=== PATIENT | male | born 1955 | race Caucasian/White ===

== ENCOUNTER 2019-07-24 07:46 | Outpatient (CLI) | payer BC, SELFPAY ==
[2019-07-24 08:19] LABS: Hematocrit 44.9 % (42.0-52.0); Hemoglobin 14.7 g/dL (14.0-18.0); Mean Corpuscular HGB Conc 32.7 g/dl (32-36); Mean Corpuscular Hemoglobin 30.1 pg (26-34); Mean Corpuscular Volume 91.8 fl (80-100); Mean Platelet Volume 9.8 fl (7.4-10.4); Platelet Count Result 179 k/mm3 (150-375); Red Blood Count 4.89 M/mm3 (4.6-6.20); White Blood Count 8.3 K/mm3 (4.5-10.0)
[2019-07-24 08:34] LABS: Alanine Aminotransferase 17 U/L (4-50); Albumin Level 4.1 g/dL (3.5-5.1); Alkaline Phosphatase 62 U/L (38-126); Aspartate Amino Transferase 22 U/L (17-59); Bilirubin,Total 0.4 mg/dL (0.2-1.3); Blood Urea Nitrogen 21 mg/dL (9-20); Calcium 9.1 mg/dL (8.4-10.2); Carbon Dioxide 24 mmol/L (22-30); Chloride 103 mmol/L (98-107); Cholesterol 102 mg/dL (0-200); Estimated Glomerular Filt Rate > 60; Glucose 111 mg/dL (75-110); HDL Direct 39 mg/dL; Potassium 3.9 mmol/L (3.4-5.0); Sodium 136 mmol/L (137-145); Triglycerides 149 mg/dL (<150)
[2019-07-24 08:45] LABS: LDL Cholesterol Direct 38 mg/dL
[2019-07-24 09:04] LABS: Prostate Specific Antigen < 0.1 ng/mL (< OR = 4.0)
[2019-07-24 09:59] LABS: Vitamin D 25 Hydroxy 39.1 ng/mL
== END 2019-07-24 07:47 | disposition home or self-care (01) ==
PROVIDERS: PCP Internal Medicine; Visit Provider Internal Medicine
DX: Z00.00 Encounter for general adult medical examination without abnormal findings (principal); I10 Essential (primary) hypertension; E55.9 Vitamin D deficiency, unspecified
CPT/HCPCS: 36415; 80053; 80061; 82306; 83735; 84153; 84443; 85027

== ENCOUNTER 2019-08-22 00:46 | Day surgery (SDC) | payer BC, SELFPAY ==
[2019-08-15 14:47] VITALS: BMI 26.5
[2019-08-22] MEDS: LACTATED RINGERS 1,000 ML 150 ML IV CONT (07:19)
[2019-08-22 07:32] VITALS: BP 144/94; PULSE 58; RESP 16; TEMP 36.2; O2SAT 100
--- NOTE | 2019-08-22 07:41 | PM.HPGS ---
History of Present Illness History of Present Illness Consent: Risks, benefits, and alternatives have been discussed and questions answered. Patient agrees to proceed with procedure. Chief complaint: Neoplasm Screening Narrative: Marcellus Liang is a 63 year old male referred for screening colonoscopy [facility] Family History Family History Father Patient's father is Malignant neoplasm of prostate Mother Patient's mother is Sibling Malignant neoplasm of prostate Social History Social History Smoking status: Never smoker Second hand tobacco smoke exposure: No Alcohol intake: current Meds Home Medications and Allergies Home Medications Medication Instructions Recorded Confirmed Type aspirin 81 mg tablet,delayed 81 mg PO DAILY 05/01/19 08/15/19 History release evolocumab 140 mg/mL subcutaneous 140 mg SUB-Q ONCE 05/01/19 08/15/19 History pen injector gabapentin 300 mg capsule 300 mg PO DAILY 05/01/19 08/15/19 History lisinopril 20 mg tablet 20 mg PO DAILY 05/01/19 08/15/19 History metoprolol succinate 25 mg 25 mg PO DAILY 05/01/19 08/15/19 History tablet,extended release 24 hr zivabqui-oia-zgalp acid 300 1 tablet PO DAILY 05/01/19 08/15/19 History mcg-lycopene 600 mcg-lutein 300 mcg tablet nitroglycerin 0.3 mg sublingual 0.3 mg SUBLINGUAL Q5M PRN 05/01/19 08/15/19 History tablet red yeast rice 600 mg tablet 600 mg PO DAILY 05/01/19 08/15/19 History famotidine 40 mg tablet 40 mg PO DAILY #90 tablet 06/06/19 08/15/19 Rx diazepam 10 mg tablet 10 mg PO BID PRN #60 tablet 08/07/19 08/15/19 Rx naproxen 500 mg tablet 500 mg PO BID PRN #60 tablet 08/14/19 08/15/19 Rx Allergies Allergy/AdvReac Type Severity Reaction Status Date / Time iodine Allergy Severe Verified 08/22/19 07:26 alirocumab Allergy Unknown flu like Verified 08/22/19 07:26 symptoms ibuprofen Allergy Unknown Verified 08/22/19 07:26 Iodinated Contrast Media Allergy Unknown Verified 08/22/19 07:26 Spfeqey-Izw-Agg Reductase Allergy Unknown Verified 08/22/19 07:26 Inhibitor tramadol Allergy Unknown suicidal Verified 08/22/19 07:26 thoughts Vital Signs Vital Signs - 24 hr 08/22/19 07:32 Temperature 36.2 C L Pulse Rate 58 L Respiratory Rate 16 Blood Pressure 144/94 H Pulse Oximetry 100 Exam Resp: Auscultation: clear to auscultation bilaterally Cardio: Rate: regular rate Rhythm: regular rhythm GI: GI Palp: Yes Soft to palpation and No Tenderness to palpation present (GI) Assessment and Plan Assessment and plan (1) Colon cancer screening: Code(s): Z12.11 - Encounter for screening for malignant neoplasm of colon Status: Acute Assessment and Plan: Colonoscopy with possible biopsy or polypectomy or cautery or injection of substances.
--- NOTE | 2019-08-22 08:01 | WPDANESEPPF ---
Anes - Initial Pre Proc Eval Procedure: Operation Date: 08/22/19 08:30 Proposed Procedures p Screening Colonoscopy - Dre Antoine MD Date/Time: 08/22/19 08:01 Surgeon: Dre Antoine MD Pre Op Diagnosis: Neoplasm Screening Patient Data Age: 63 Gender: M Height: 5 ft 10 in Weight: 83.3 kg Last Vital Signs Temp 97.1 F L 08/22/19 07:32 Pulse 58 L 08/22/19 07:32 Resp 16 08/22/19 07:32 BP 144/94 H 08/22/19 07:32 Pulse Ox 100 08/22/19 07:32 Allergies Allergy/AdvReac Type Severity Reaction Status Date / Time iodine Allergy Severe Verified 08/22/19 07:26 alirocumab Allergy Unknown flu like Verified 08/22/19 07:26 symptoms ibuprofen Allergy Unknown Verified 08/22/19 07:26 Iodinated Contrast Media Allergy Unknown Verified 08/22/19 07:26 Vmpmwfr-Hdc-Ezk Reductase Allergy Unknown Verified 08/22/19 07:26 Inhibitor tramadol Allergy Unknown suicidal Verified 08/22/19 07:26 thoughts Home Medications Medication Instructions Recorded Confirmed Type aspirin 81 mg tablet,delayed 81 mg PO DAILY 05/01/19 08/15/19 History release evolocumab 140 mg/mL subcutaneous 140 mg SUB-Q ONCE 05/01/19 08/15/19 History pen injector gabapentin 300 mg capsule 300 mg PO DAILY 05/01/19 08/15/19 History lisinopril 20 mg tablet 20 mg PO DAILY 05/01/19 08/15/19 History metoprolol succinate 25 mg 25 mg PO DAILY 05/01/19 08/15/19 History tablet,extended release 24 hr prgymwoa-bim-vxusg acid 300 1 tablet PO DAILY 05/01/19 08/15/19 History mcg-lycopene 600 mcg-lutein 300 mcg tablet nitroglycerin 0.3 mg sublingual 0.3 mg SUBLINGUAL Q5M PRN 05/01/19 08/15/19 History tablet red yeast rice 600 mg tablet 600 mg PO DAILY 05/01/19 08/15/19 History famotidine 40 mg tablet 40 mg PO DAILY #90 tablet 06/06/19 08/15/19 Rx diazepam 10 mg tablet 10 mg PO BID PRN #60 tablet 08/07/19 08/15/19 Rx naproxen 500 mg tablet 500 mg PO BID PRN #60 tablet 08/14/19 08/15/19 Rx Patient hx anesthesia problems: none Family hx anesthesia problems: none PMFSH Past Medical History Medical History (Updated 08/22/19 @ 07:51 by Kishore Almodovar MD) H/O prostate cancer Hyperlipidemia Hypertension Myocardial infarct, old Surgical History Surgical History (Updated 08/22/19 @ 08:00 by Kishore Almodovar MD) S/P CABG x 4 Family History Family History Father Patient's father is Malignant neoplasm of prostate Mother Patient's mother is Sibling Malignant neoplasm of prostate Social History Social History Smoking status: Never smoker Second hand tobacco smoke exposure: No Alcohol intake: current Anes - Eval Final PreProcedure Day of Procedure 08/22/19 08:01 Patient weight: normal Heart: regular rate and rhythm Lungs: clear to auscultation Airway: Mallampati scale class III Neurological: alert and oriented Last oral intake: >/= 8 hours ASA classification: III Emergent: no Anesthetic plan: proceed Anesthesia type and monitoring: general GIVS and standard monitoring Informed Consent: The patient's anesthetic plan and its attendant risks and benefits were discussed with the patient/family/POA. Questions were solicited and answers provided to the satisfaction of the patient/family/POA.
[2019-08-22] MEDS: SIMETHICONE ORAL SUSPENSION 20 MG/0.3 ML 30 ML BOTTLE 0.6 ML IRRIGATION (08:38)
[2019-08-22 08:51] VITALS: BP 140/77; PULSE 64; RESP 18; O2SAT 98
[2019-08-22 09:01] VITALS: BP 113/70; PULSE 62; RESP 18; O2SAT 99
[2019-08-22 09:11] VITALS: BP 153/93; PULSE 55; RESP 20; O2SAT 100
== END 2019-08-22 09:27 | disposition home or self-care (01) ==
PROVIDERS: PCP Internal Medicine; Visit Provider Internal Medicine Gastroenterology
PROC: 0DJD8ZZ Inspection of Lower Intestinal Tract, Via Natural or Artificial Opening Endoscopic (ICD-10-PCS; CPT 45378; principal; 2019-08-22 08:30)
DX: Z12.11 Encounter for screening for malignant neoplasm of colon (principal); K63.5 Polyp of colon; K57.30 Diverticulosis of large intestine without perforation or abscess without bleeding; I10 Essential (primary) hypertension; E78.5 Hyperlipidemia, unspecified; I25.2 Old myocardial infarction; Z85.46 Personal history of malignant neoplasm of prostate; Z79.82 Long term (current) use of aspirin; Z95.1 Presence of aortocoronary bypass graft
CPT/HCPCS: 45380; 88305; J2704; J7120

== ENCOUNTER 2019-10-25 09:24 | Outpatient (CLI) | payer BC, SELFPAY ==
--- NOTE | ~2019-10-25 | XR_ITS ---
XR knee RT 2V 10/25/2019 09:49 Indication: Right knee pain. Previous knee surgery. Procedure: 2 views right knee Comparison: No prior studies for comparison. Findings: No fracture, subluxation or dislocation. There are surgical clips medial to the right knee. No significant joint effusion. No joint space narrowing. Impression: 1: No significant bone or joint abnormality. Reviewed, dictated and finalized at location A. Impression: 1: No significant bone or joint abnormality.
== END 2019-10-25 09:25 | disposition home or self-care (01) ==
PROVIDERS: PCP Internal Medicine; Visit Provider Internal Medicine
DX: M25.561 Pain in right knee (principal)
CPT/HCPCS: 73560

== ENCOUNTER 2020-02-18 11:20 | Emergency (ER) | payer BC, SELFPAY ==
[2020-02-18 11:23] VITALS: BP 143/86; PULSE 73; RESP 16; TEMP 36.7; O2SAT 100
[2020-02-18] MEDS: hydrOXYzine HCL 25 MG TABLET 50 MG PO (12:07)
[2020-02-18] MEDS: FAMOTIDINE 20 MG TABLET PO (12:07)
[2020-02-18] MEDS: predniSONE 20 MG TABLET 60 MG PO (12:08)
--- NOTE | 2020-02-18 12:40 | ED.ALLEREA ---
HPI - Allergic Reaction General Chief complaint: Allergic Reaction <DIMITRY Donaldson Last Filed: 02/18/20 12:46> Stated complaint: stung by wasps 2 days ago <DIMITRY Donaldson Last Filed: 02/18/20 12:46> Time Seen by Provider: 02/18/20 11:47 <DIMITRY Donaldson Last Filed: 02/18/20 12:46> Source: patient and family <DIMITRY Donaldson Last Filed: 02/18/20 12:46> Mode of arrival: ambulatory <DIMITRY Donaldson Last Filed: 02/18/20 12:46> Limitations: no limitations <DIMITRY Donaldsno Last Filed: 02/18/20 12:46> History of Present Illness HPI narrative: Patient is a 64-year-old male who presents to emergency department for evaluation of having been stung by several wasps on the top of the head 2 days ago developed swelling and irritation after which patient took Benadryl yesterday with improvement but symptoms reoccurred later patient presents with some discomfort on top of the crown of the head where he has sharp stabbing pain that is intermittent patient denies any current dyspnea tongue swelling or throat tightening. . Patient is unsure as to tetanus status. Patient presents with family in no distress <DIMITRY Donaldson Last Filed: 02/18/20 12:46> Related Data Home medications: Home Medications Medication Instructions Recorded Confirmed aspirin 81 mg tablet,delayed 81 mg PO DAILY 05/01/19 12/29/19 release evolocumab 140 mg/mL subcutaneous 140 mg SUB-Q ONCE 05/01/19 12/29/19 pen injector povoiwrd-eak-drmhj acid 300 1 tablet PO DAILY 05/01/19 12/29/19 mcg-lycopene 600 mcg-lutein 300 mcg tablet nitroglycerin 0.3 mg sublingual 0.3 mg SUBLINGUAL Q5M PRN 05/01/19 12/29/19 tablet cholecalciferol (vitamin D3) 25 25 mcg PO DAILY 12/25/19 12/29/19 mcg (1,000 unit) capsule mecobalamin (vitamin B12) 5,000 mcg PO 12/25/19 12/29/19 mcg disintegrating tablet <DIMITRY Donaldson Filed: 02/18/20 12:46> Allergies/adverse reactions: Allergies Allergy/AdvReac Type Severity Reaction Status Date / Time Iodinated Contrast Media Allergy Severe Anaphylaxis Verified 02/18/20 11:30 ibuprofen Allergy Mild Ulcers Verified 02/18/20 11:30 alirocumab Allergy Unknown flu like Verified 02/18/20 11:30 symptoms Ohhyuen-Dph-Uqq Reductase AdvReac Intermediate leg pain Verified 02/18/20 11:30 Inhibitor <Ray Correia PA-C - Last Filed: 02/18/20 12:46> Review of Systems Review of Systems: All systems reviewed & are unremarkable except as noted in HPI and below <Ray Correia PA-C - Last Filed: 02/18/20 12:46> PMFSH Past Medical History Medical History: Medical History H/O prostate cancer Hyperlipidemia Hypertension Myocardial infarct, old <Ray Correia PA-C - Last Filed: 02/18/20 12:46> Surgical History Surgical History: Surgical History S/P CABG x 4 <Ray Correia PA-C - Last Filed: 02/18/20 12:46> Social History Social History: Social History Smoking status: Never smoker Second hand tobacco smoke exposure: No Alcohol intake: current Substance use: never Gender identity (if verbalized by the patient): Male <Ray Correia PA-C - Last Filed: 02/18/20 12:46> Exam Narrative: Exam Narrative: GENERAL: Well-appearing, well-nourished, and in no acute distress. HEAD: Normocephalic, atraumatic. Patient with facial edema around the eyes and down into the cheeks EYES: PERRLA and EOMI. ENT: Nares clear, no rhinorrhea or epistaxis. Mucous membranes moist. Oropharynx without tonsillar hypertrophy exudate or other lesions. No angioedema in the oropharynx NECK: Supple. No adenopathy or masses. No stridor CHEST: Clear to auscultation. No respiratory distress. No wheezes rales or rhonchi HEART:
[2020-02-18] MEDS: TETANUS,DIPHTHERIA,AC PERTUSSIS ADULT (0.5 ML) BOOSTRIX IM (12:58)
== END 2020-02-18 13:03 | disposition home or self-care (01) ==
PROVIDERS: Emergency Provider Emergency Medicine; PCP Internal Medicine
DX: T63.461A Toxic effect of venom of wasps, accidental (unintentional), initial encounter (principal); Z79.82 Long term (current) use of aspirin; Z85.46 Personal history of malignant neoplasm of prostate; E78.5 Hyperlipidemia, unspecified; I10 Essential (primary) hypertension; I25.2 Old myocardial infarction; I25.10 Atherosclerotic heart disease of native coronary artery without angina pectoris; Z95.1 Presence of aortocoronary bypass graft; Z23 Encounter for immunization
CPT/HCPCS: 90471; 90715; 99283; A9270; J7512

== ENCOUNTER 2020-06-16 10:51 | Outpatient (CLI) | payer BC, SELFPAY ==
--- NOTE | ~2020-06-16 | XR_ITS ---
EXAMINATION: XR ribs LT 2V w CXR 2V DATE: 06/16/2020 11:13 INDICATION: Lateral lower left rib pain post fall 3 days prior TECHNIQUE: A frontal inspiratory view of the chest and 3 views of the left ribs were obtained. COMPARISON: Chest radiograph dated 05/23/2019 FINDINGS: Recent appearing nondisplaced fracture at the anterolateral left ninth rib. Old healed fracture of th e posterolateral left second rib. No other rib fractures identified. Lungs are clear with no focal ai rspace opacities, pulmonary edema, pleural effusion or pneumothorax. Cardiomediastinal silhouette is normal. Median sternotomy wires and mediastinal surgical clips are seen, likely from prior coronary a rtery bypass grafting. IMPRESSION: 1. Recent-appearing nondisplaced anterolateral left ninth rib fracture. 2. No pneumothorax, pleural effusion or other acute cardiopulmonary disease. Reviewed, dictated and finalized at location A. 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
== END 2020-06-16 10:52 | disposition home or self-care (01) ==
PROVIDERS: PCP Internal Medicine; Visit Provider Physician Assistant
DX: S22.32XA Fracture of one rib, left side, initial encounter for closed fracture (principal); X58.XXXA Exposure to other specified factors, initial encounter
CPT/HCPCS: 71046; 71100

== ENCOUNTER 2020-06-25 08:13 | Outpatient (CLI) | payer BC, SELFPAY ==
[2020-06-25 08:58] LABS: Basophils Percent Auto 0.6 % (0.2-1.2); Eosinophils Absolute Auto 0.2 K/mm3 (0-0.3); Eosinophils Percent Auto 3.2 % (0-4.4); Hematocrit 45.9 % (42.0-52.0); Hemoglobin 15.2 g/dL (14.0-18.0); Immature Granulocyte Absolute 0.06 K/mm3 (0.00-0.031); Immature Granulocyte Percent A 0.9 % (0-0.5); Lymphocytes Percent Auto 17.4 % (18.3-44.2); Mean Corpuscular HGB Conc 33.1 g/dl (32-36); Mean Corpuscular Hemoglobin 30.3 pg (26-34); Mean Corpuscular Volume 91.4 fl (80-100); Mean Platelet Volume 9.5 fl (7.4-10.4); Monocytes Absolute Auto 0.5 K/mm3 (0.1-0.6); Monocytes Percent Auto 8.4 % (2.6-8.5); Neutrophils Absolute Auto 4.4 K/mm3 (1.3-6.7); Neutrophils Percent Auto 69.5 % (45.5-73.1); Platelet Count Result 181 k/mm3 (150-375); Red Blood Count 5.02 M/mm3 (4.6-6.20); Red Cell Distribution Width 13.7 % (11.5-14.5); White Blood Count 6.3 K/mm3 (4.5-10.0)
[2020-06-25 09:09] LABS: Alanine Aminotransferase 18 U/L (4-50); Alkaline Phosphatase 76 U/L (38-126); Anion Gap 6 mmol/L (8-16); Aspartate Amino Transferase 25 U/L (17-59); Bilirubin,Total 0.4 mg/dL (0.2-1.3); Blood Urea Nitrogen 24 mg/dL (9-20); Carbon Dioxide 26 mmol/L (22-30); Chloride 106 mmol/L (98-107); Cholesterol 117 mg/dL (0-200); Estimated Glomerular Filt Rate > 60; Glucose 115 mg/dL (75-110); HDL Direct 38 mg/dL; Potassium 4.1 mmol/L (3.4-5.0); Sodium 138 mmol/L (137-145); Triglycerides 234 mg/dL (<150)
[2020-06-25 09:23] LABS: LDL Cholesterol Direct 40 mg/dL
[2020-06-25 09:41] LABS: Prostate Specific Antigen < 0.1 ng/mL (< OR = 4.0)
[2020-06-25 10:16] LABS: Folic Acid > 20.0 ng/mL (2.76->20)
== END 2020-06-25 08:14 | disposition home or self-care (01) ==
PROVIDERS: PCP Internal Medicine; Referring Provider Internal Medicine Cardiovascular Disease; Visit Provider Internal Medicine
DX: R53.83 Other fatigue (principal); E78.5 Hyperlipidemia, unspecified; I10 Essential (primary) hypertension; Z12.5 Encounter for screening for malignant neoplasm of prostate
CPT/HCPCS: 36415; 80053; 80061; 82607; 82746; 84153; 84443; 85025; G0103

== ENCOUNTER 2021-01-20 08:47 | Outpatient (CLI) | payer MEDICARE, SELFPAY ==
[2021-01-20 09:19] LABS: Cholesterol 96 mg/dL (0-200); HDL Direct 39 mg/dL; Triglycerides 227 mg/dL (<150)
[2021-01-20 09:34] LABS: LDL Cholesterol Direct < 30 mg/dL
== END 2021-01-20 08:48 | disposition home or self-care (01) ==
PROVIDERS: PCP Internal Medicine; Visit Provider Internal Medicine Cardiovascular Disease
DX: I25.10 Atherosclerotic heart disease of native coronary artery without angina pectoris (principal); E78.5 Hyperlipidemia, unspecified
CPT/HCPCS: 36415; 80061

== ENCOUNTER 2021-04-15 12:01 | Outpatient (CLI) | payer MEDICARE, SELFPAY ==
--- NOTE | ~2021-04-15 | XR_ITS ---
EXAMINATION: XR clavicle LT INDICATION: Left clavicle pain TECHNIQUE: Two views of the left clavicle are obtained. COMPARISON: 06/16/2020 FINDINGS: Bone alignment is normal. There is no fracture. Mild osteoarthritis is noted at the acromio clavicular joint. Median sternotomy wires and surgical clips in the right lung apex are noted. IMPRESSION: 1. No acute osseous abnormality. Reviewed, dictated and finalized at location A.
== END 2021-04-15 12:02 | disposition home or self-care (01) ==
LOC: ANHIMG 12:14
PROVIDERS: PCP Internal Medicine; Visit Provider Physician Assistant
DX: R07.89 Other chest pain (principal); W19.XXXA Unspecified fall, initial encounter
CPT/HCPCS: 73000

== ENCOUNTER 2021-08-03 08:55 | Outpatient (CLI) | payer MEDICARE, SELFPAY ==
[2021-08-03 09:27] LABS: Basophils Absolute Auto 0.1 K/mm3 (0.0-0.1); Basophils Percent Auto 0.8 % (0.2-1.2); Eosinophils Absolute Auto 0.2 K/mm3 (0-0.3); Eosinophils Percent Auto 3.1 % (0-4.4); Hematocrit 46.6 % (42.0-52.0); Hemoglobin 15.7 g/dL (14.0-18.0); Immature Granulocyte Absolute 0.05 K/mm3 (0.00-0.031); Immature Granulocyte Percent A 0.7 % (0-0.5); Lymphocytes Absolute Auto 1.37 K/mm3 (0.9-3.2); Lymphocytes Percent Auto 18.5 % (18.3-44.2); Mean Corpuscular HGB Conc 33.7 g/dl (32-36); Mean Corpuscular Hemoglobin 30.3 pg (26-34); Mean Platelet Volume 9.6 fl (7.4-10.4); Monocytes Absolute Auto 0.6 K/mm3 (0.1-0.6); Monocytes Percent Auto 8.5 % (2.6-8.5); Neutrophils Absolute Auto 5.1 K/mm3 (1.3-6.7); Neutrophils Percent Auto 68.4 % (45.5-73.1); Platelet Count Result 198 k/mm3 (150-375); Red Blood Count 5.18 M/mm3 (4.6-6.20); Red Cell Distribution Width 12.5 % (11.5-14.5); White Blood Count 7.4 K/mm3 (4.5-10.0)
[2021-08-03 09:38] LABS: Alanine Aminotransferase 23 U/L (4-50); Albumin Level 4.6 g/dL (3.5-5.1); Alkaline Phosphatase 59 U/L (38-126); Anion Gap 10 mmol/L (8-16); Aspartate Amino Transferase 26 U/L (17-59); Bilirubin,Total 0.6 mg/dL (0.2-1.3); Blood Urea Nitrogen 16 mg/dL (9-20); Calcium 9.5 mg/dL (8.4-10.2); Carbon Dioxide 26 mmol/L (22-30); Chloride 101 mmol/L (98-107); Cholesterol 177 mg/dL (0-200); Estimated Glomerular Filt Rate > 60; Glucose 105 mg/dL (65-110); HDL Direct 37 mg/dL; Potassium 4.3 mmol/L (3.4-5.0); Sodium 137 mmol/L (137-145); Triglycerides 283 mg/dL (<150)
[2021-08-03 09:50] LABS: LDL Cholesterol Direct 79 mg/dL
[2021-08-03 11:01] LABS: Folic Acid > 20.0 ng/mL (2.76->20); Vitamin B12 > 1000.0 pg/mL (239-931)
== END 2021-08-03 08:56 | disposition home or self-care (01) ==
LOC: ANHLAB 08:57
PROVIDERS: PCP Internal Medicine; Referring Provider Internal Medicine Cardiovascular Disease; Visit Provider Internal Medicine
DX: E78.5 Hyperlipidemia, unspecified (principal); R53.83 Other fatigue; R73.9 Hyperglycemia, unspecified
CPT/HCPCS: 36415; 80053; 80061; 82607; 82746; 84443; 85025

== ENCOUNTER 2021-09-21 17:26 | Emergency (ER) | payer MEDICARE, SELFPAY ==
[2021-09-21 18:23] VITALS: BP 164/86; PULSE 64; RESP 16; TEMP 36.7; O2SAT 99
--- NOTE | 2021-09-21 19:18 | ED.GENADULT ---
HPI - General Adult General Chief complaint: Unspecified Stated complaint: glass in right heel Time Seen by Provider: 09/21/21 18:34 History of Present Illness HPI narrative: 65-year-old male presents the emergency room with concerns for a foreign body in his right heel. Patient states that he broke a jar in the kitchen several days ago, and thought that he was able to sweep the ball of the broken glass. Patient states today he was walking in the kitchen barefoot and felt a sharp pain in his heel. Patient was able to remove a large piece of glass prior to arrival, but still feels like there is a piece in his heel. Related Data Home Medications Medication Instructions Recorded Confirmed aspirin 81 mg tablet,delayed 81 mg PO DAILY 05/01/19 06/01/21 release mmuaebjr-txq-jsnit acid 300 1 tablet PO DAILY 05/01/19 06/01/21 mcg-lycopene 600 mcg-lutein 300 mcg tablet cholecalciferol (vitamin D3) 25 25 mcg PO DAILY 12/25/19 06/01/21 mcg (1,000 unit) capsule mecobalamin (vitamin B12) 5,000 mcg PO 12/25/19 06/01/21 mcg disintegrating tablet Allergies Allergy/AdvReac Type Severity Reaction Status Date / Time Iodinated Contrast Media Allergy Severe Anaphylaxis Verified 09/21/21 18:45 venom-wasp Allergy Severe Swelling Verified 09/21/21 18:45 ibuprofen Allergy Mild Ulcers Verified 09/21/21 18:45 alirocumab Allergy Unknown flu like Verified 09/21/21 18:45 symptoms Ucglhwy-JWR-IsP Reductase AdvReac Intermediate leg pain Verified 09/21/21 18:45 Inhibitor [Ajecdha-Eff-Pov Reductase Inhibitor] Review of Systems Review of Systems: CONSTITUTIONAL: Denies fever, chills, or sweats. EYES: Denies visual changes, redness, or discharge. ENT: Denies rhinorrhea, congestion, sore throat, or otalgia. CARDIOVASCULAR: Denies chest pain, palpitations, or edema. RESPIRATORY: Denies cough or dyspnea. GASTROINTESTINAL: Denies abdominal pain, nausea, vomiting, or diarrhea. GENITOURINARY: Denies dysuria or hematuria. SKIN: Reports foreign body to the right heel MUSCULOSKELETAL: Denies back pain, joint pain, or myalgia. NEUROLOGIC: Denies headache, numbness, dizziness, or weakness. PSYCHIATRIC: Denies anxiety or depression. [facility] Past Medical History Medical History Arthritis H/O prostate cancer Hyperlipidemia Hypertension Myocardial infarct, old Olecranon bursitis of right elbow Right elbow pain Surgical History Surgical History S/P CABG x 4 Family History Family History Father Patient's father is Malignant neoplasm of prostate Mother Patient's mother is Sibling Malignant neoplasm of prostate Social History Social History Smoking status: Never smoker Second hand tobacco smoke exposure: No Alcohol intake: current Substance use: never Gender identity (if verbalized by the patient): Male Exam Narrative: GENERAL: Well-appearing, well-nourished, and in no acute distress. HEAD: Normocephalic, atraumatic. EYES: PERRLA and EOMI. ENT: Nares clear, no rhinorrhea or epistaxis. Mucous membranes moist. Oropharynx without tonsillar hypertrophy exudate or other lesions. Bilateral TMs pearly earl nonbulging NECK: Supple. No adenopathy or masses. No carotid bruits or JVD CHEST: Clear to auscultation. No respiratory distress. No wheezes rales or rhonchi HEART: Regular rate and rhythm. No murmur heard. Normal peripheral pulses. ABDOMEN: Soft, nontender, nondistended, normal active bowel sounds. EXTREMITIES: Normal range of motion. No edema. SKIN: Half centimeter laceration to the right heel with foreign body exposed. NEURO: No focal deficits. Alert and oriented x3. PSYCH: Normal mood and affect. Course Vital Signs Vital signs: Vital Signs
[2021-09-21 19:34] VITALS: BP 133/64; PULSE 74; RESP 16; O2SAT 98
== END 2021-09-21 19:35 | disposition home or self-care (01) ==
PROVIDERS: Emergency Provider Nurse Practitioner Family; PCP Internal Medicine
DX: S90.851A Superficial foreign body, right foot, initial encounter (principal); M19.90 Unspecified osteoarthritis, unspecified site; E78.5 Hyperlipidemia, unspecified; I10 Essential (primary) hypertension; I25.2 Old myocardial infarction; Z95.1 Presence of aortocoronary bypass graft; Z79.899 Other long term (current) drug therapy; Z79.82 Long term (current) use of aspirin; W45.8XXA Other foreign body or object entering through skin, initial encounter
CPT/HCPCS: 28190; 99283

== ENCOUNTER 2022-02-04 12:16 | Outpatient (CLI) | payer MEDICARE, SELFPAY ==
--- NOTE | ~2022-02-04 | US_ITS ---
EXAMINATION: US soft tissue head and neck DATE: 02/04/2022 12:54 INDICATION: Localized swelling, mass or lump at the submandibular left neck TECHNIQUE: Multiple grayscale and Doppler ultrasound images of the left submandibular region of ernesto rn were obtained. COMPARISON: CT dated 01/14/2011 FINDINGS: The left submandibular gland appears normal and slightly larger than the contralateral right submandi bular gland. This appears comparable to the slight asymmetry in the submandibular glands evident on t he prior CT from 11 years prior. There are couple normal-appearing level 2 left jugular chain lymph n odes in the inferior margin of the submandibular gland which measure up to 5 mm and 7 mm in maximal s hort axis diameters which is within normal limits. No pathologically enlarged lymph nodes or other ab normal masses or fluid collections identified at the region of concern. IMPRESSION: 1. Unremarkable left submandibular gland and a couple normal jugular chain lymph nodes in the region of concern. No pathologically enlarged lymph nodes or abnormal masses or fluid collections identified . Reviewed, dictated and finalized at location A. IMPRESSION: 1. Unremarkable left submandibular gland and a couple normal jugular chain lymp h nodes in the region of concern. No pathologically enlarged lymph nodes or abn ormal masses or fluid collections identified.
== END 2022-02-04 12:17 | disposition home or self-care (01) ==
PROVIDERS: PCP Internal Medicine; Visit Provider Internal Medicine
DX: R22.1 Localized swelling, mass and lump, neck (principal)
CPT/HCPCS: 76536

== ENCOUNTER 2022-08-25 09:40 | Outpatient (CLI) | payer MEDICARE, SELFPAY ==
[2022-08-25 10:07] LABS: Basophils Absolute Auto 0.1 K/mm3 (0.0-0.1); Basophils Percent Auto 0.7 % (0.2-1.2); Eosinophils Absolute Auto 0.2 K/mm3 (0-0.3); Eosinophils Percent Auto 2.2 % (0-4.4); Hematocrit 48.6 % (42.0-52.0); Hemoglobin 15.8 g/dL (14.0-18.0); Immature Granulocyte Absolute 0.04 K/mm3 (0.00-0.031); Immature Granulocyte Percent A 0.6 % (0-0.5); Lymphocytes Absolute Auto 1.56 K/mm3 (0.9-3.2); Lymphocytes Percent Auto 23.1 % (18.3-44.2); Mean Corpuscular HGB Conc 32.5 g/dl (32-36); Mean Corpuscular Hemoglobin 28.5 pg (26-34); Mean Corpuscular Volume 87.7 fl (80-100); Mean Platelet Volume 9.6 fl (7.4-10.4); Monocytes Absolute Auto 0.6 K/mm3 (0.1-0.6); Monocytes Percent Auto 8.6 % (2.6-8.5); Neutrophils Absolute Auto 4.4 K/mm3 (1.3-6.7); Neutrophils Percent Auto 64.8 % (45.5-73.1); Platelet Count Result 240 k/mm3 (150-375); Red Blood Count 5.54 M/mm3 (4.6-6.20); Red Cell Distribution Width 13.2 % (11.5-14.5); White Blood Count 6.8 K/mm3 (4.5-10.0)
[2022-08-25 10:40] LABS: Alanine Aminotransferase 26 U/L (6-50); Albumin Level 4.7 g/dL (3.5-5.1); Alkaline Phosphatase 69 U/L (38-126); Anion Gap 7 mmol/L (8-16); Aspartate Amino Transferase 25 U/L (17-59); Bilirubin,Total 0.6 mg/dL (0.2-1.3); Blood Urea Nitrogen 18 mg/dL (9-20); Carbon Dioxide 26 mmol/L (22-30); Chloride 105 mmol/L (98-107); Cholesterol 180 mg/dL (0-200); Estimated Glomerular Filt Rate > 60; Glucose 107 mg/dL (65-110); HDL Direct 32 mg/dL; Potassium 4.1 mmol/L (3.4-5.0); Sodium 138 mmol/L (137-145); Triglycerides 292 mg/dL (<150)
[2022-08-25 10:52] LABS: LDL Cholesterol Direct 85 mg/dL
[2022-08-25 11:10] LABS: Prostate Specific Antigen < 0.1 ng/mL (< OR = 4.0)
[2022-08-25 11:24] LABS: Hemoglobin A1C 5.7 % (<5.7)
[2022-08-25 11:46] LABS: Folic Acid 19.3 ng/mL (2.76->20)
== END 2022-08-25 09:41 | disposition home or self-care (01) ==
LOC: ANHLAB 09:42
PROVIDERS: PCP Internal Medicine; Visit Provider Internal Medicine
DX: R53.83 Other fatigue (principal); R73.9 Hyperglycemia, unspecified; Z12.5 Encounter for screening for malignant neoplasm of prostate; E78.5 Hyperlipidemia, unspecified; I10 Essential (primary) hypertension
CPT/HCPCS: 36415; 80053; 80061; 82607; 82746; 83036; 84153; 84443; 85025; G0103

== ENCOUNTER 2023-07-21 09:46 | Outpatient (CLI) | payer MEDICARE, SELFPAY ==
--- NOTE | ~2023-07-21 | XR_ITS ---
XR hip BI 2V w AP pelvis DATE: 07/21/2023 10:06 INDICATION: Right low back pain. Groin pain/burning. TECHNIQUE: AP pelvis. AP and lateral views of each hip. COMPARISON: None FINDINGS: Multiple bilateral pelvic surgical clips likely due to prostatectomy and bilateral pelvic s idewall lymph node dissection. The pubic symphysis and sacroiliac joints are intact. Mild bilateral hip osteoarthritis. No fracture or dislocation, avascular necrosis or bone destruction of either hip is detected. IMPRESSION: Mild hip osteoarthritis; no fracture or dislocation Status post prostatectomy and bilateral pelvic sidewall lymph node dissection Reviewed, dictated and finalized at location L. 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
== END 2023-07-21 09:47 | disposition home or self-care (01) ==
LOC: ANHIMG 09:49
PROVIDERS: PCP Internal Medicine; Visit Provider Internal Medicine
DX: M16.0 Bilateral primary osteoarthritis of hip (principal)
CPT/HCPCS: 73521

== ENCOUNTER 2025-01-02 07:37 | Outpatient (CLI) | payer MEDICARE, SELFPAY ==
--- OUTSIDE RECORDS SUMMARY | 2025-01-02 07:39 | XMS_ITS | Clinical Summary ---
Author Organization [facility] Address [address] [place] [address] Care Team Providers Care Security Assurance Specialist Name Role Phone Unavailable Primary Care Provider Unavailabl e Source Comments [facility],non-owned Affiliates and Associated Physician Practices is amultiple site organization consisting of ambulatory clinics and hospital sitesin [place], [place], [place] and [place]. This disclosure is being madepursuant to the Care Everywhere program and may not contain all information available regarding this patient. 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 Gender Identity Not on file Sexual Orientation Not on file Plan of Treatment Health Maintenance Due Date Last Done Comments COLOGUARD (AGES 45-75) - COL ON CA SCREENING 1955 COLON MONITORING 1955 COLONOSCOPY - COLON CA SCREENING 1955 CT COLONOGRAPHY - COLON CA SCREENING 1955 Colorectal Cancer Screening 1955 FIT - COLON CA SCREENING 1955 FLEX SIG - COLON CA SCREENING 1955 LIPID TESTING 1955 HEPATITIS C SCREENING 12/01/1973 DTAP/TDAP/TD VACCINES (1 - Tdap) 12/05/1974 PNEUMOCOCCAL VACCINE 50+ (1 of 1 - PCV) 12/05/2005 ZOSTER VACCINE (1 of 2) 12/05/2005 COVID-19 VACCINE ( - 2023-2 5 season) 2024 DEPRESSION SCREENING 06/20/2024 MEDICARE AWV CALENDAR YEAR 2024 INFLUENZA VACCINE (#1) 2025 Respiratory Syncytial Virus (RSV) Vaccine Pt: or over 60 yrs (1 - 1-dose 75+ series) 12/05/2030 HEPATITIS B VACCINE Aged Out No longe r eligible based on patient's age to complete this topic HIB VACCINE Aged Out No longer eligi ble based on patient's age to complete this topic HPV VACCINE Aged Out No longer eligi ble based on patient's age to complete this topic MENINGOCOCCAL (Group B) VACC INE SHARED DECISION-MAKING Aged Out No longer eligibl e based on patient's age to complete this topic MENINGOCOCCAL GROUPS A/C/Y/W VACCINE Aged Out No longer eligible b ased on patient's age to complete this topic Insurance [facility] UHC MANAGED MEDICARE ADV
--- OUTSIDE RECORDS SUMMARY | 2025-01-02 07:39 | XMS_ITS | Continuity of Care Document ---
Author Organization [facility] Address [address] [place] [address] Phone Care Team Providers Care Stone Chimney Mason Name Role Phone Elma Scott DO Unavailable Unavailable Allergies, Adverse Reactions, Alerts Substance Reaction Status Criticality CAT HAIR STANDARDIZED ALLERGENIC EXTRACT Active No Information iodine Anaphylaxis Active No Information Medications Medication Instructions Dosage Effective Dates (start - stop) Status Comments Miralax 17 gram oral powder packet take 1 packet by oral route every day mixed with 8 oz. water, juice, soda, coffee or tea - Active hydrocodone 5 mg-acetaminophen 325 mg tablet Take 1 tablet by mouth at bedtime as neede for severe pain. - No Longer Active Procedures Procedure Date Supplemental Report Office/outpatient visit,est, mod 2015 Urinalysis, Dipstick Office/outpatient visit,new, [facility] [place] 2015 Supplemental Report Office/outpatient visit,est, mod 2015 Supplemental Report Office/outpatient visit,est, mod 2015 Supplemental Report Office/outpatient visit,est, mod 2015 X-ray exam Cervical 3 Views Or Less BioFreeze, Tube Office/outpatient visit,new, mod 2015 X-ray exam Cervical 3 Views Or Less Office/outpatient visit,new, mod 2014 Advance Directives Directive Yes / No Effective Date File Name No Information Encounters Encounter Description Practice Location Reason(s) For Visit Diagnoses Date Provider Providers Copied on Encounter Office/outpa tient visit,est, [facility], [address] [address], [place], [place], [id number], [place] tel:[phone] [facility] Follow Up of right groin (chief complaint) Right testicular pain 6 Sonia Wills. [address] [address], [place], [place], [id number] , [place]. tel: [phone] Office/outpa tient visit,new, [facility] [place] [facility], [address], [id number], [place] [phone] [facility] Right Groin (chief complaint) Right testicular pain 6 Sonia Wills. [address] [address], [place], [place], [id number] , [place]. tel: [phone] Office/outpa tient visit,[facility], [facility], [address], [id number], [place] [phone] [facility] Sprain of ligaments of cervical spine, subsequent encounter 6 Sonia Wills. [address] [address], [place], [place], [id number] , [place]. tel: [phone] Office/outpa tient visit,[facility], [facility], [address], [id number], [place] [phone] [facility] Sprain of ligaments of cervical spine, subsequent encounterOther spondylosis, cervical region 6 Sonia Wills. [address] [address], [place], [place], [id number] , [place]. tel: [phone] Office/outpa tient visit,[facility], [facility], [address], [id number], [place] [phone] [facility] Sprain of ligaments of cervical spine, subsequent encounter Sonia Elma. [address], [place], [place], [id number] , [place]. tel:[phone] [facility], [address], [place], [place], [id number], [place] [phone] [facility] CervicalgiaSprain of ligaments of cervical spine, initial encounterSprain of ligaments of thoracic spine, initial encounter Sonia Wills. [address], [place], [place], [id number] , [place]. tel: [phone] [facility], [address], [place], [place], [id number], [place] [phone] [facility] Neck painHip painCervical spondylosis Sonia Elma. [address], [place], [place], [id number] , [place]. tel: [phone] Family History Family Member Type Diagnosis Age At Onset Brother Problem (finding) prostate cancer Paternal uncle Problem (finding) prostate cancer Mother Problem (finding) Cardiovascular disease Father Problem (finding) prostate cancer Mother Problem (finding) diabetes melli tus in first degree relative Payers Payer name Insurance type Covered democrat ID Tejas loco(s) [employer] [id number] Social History Type Description Quantity Date Captured Comments Alcohol Use Details Unknown Caffeine Use Details Unknown Tobacco Use Status Occasional cigarette smoker Smoking Status Current some day smoker Smoking Tobacco Use Details Cigarette: No Details Available Cigarette: No Details Available Sex Male Vital Signs Date / Time: Height Weight BMI Pulse Rate Blood Pressure Temperature Respiratory Rate Body Surface Area Head Circumference Head Circ. Percentile Wt./[place]. Percentile BMI percentile Pulse Ox Inhaled Ox 10:14 AM 92 /min 142/82 mm[Hg] 99.30 F 16 /min Chief Complaint And Reason For Visit From encounter dated '04/12/2016 10:30'. Follow Up of right groin (chief complaint) Reason For Referral Reason For Referral No Information Plan Of Treatment Date Type Action Status Referral Ordered: Other ordered Referral Ordered: X-ray exam Cervical 3 Views Or Less ordered History Of Present Illness Encounter Date Complaint History Of Prese nt Illness Follow Up of right groin Right Groin patient complain s of right testicular pain Functional Status Date Functional Assessmen t No Information Instructions Date Instruction Additional Infor mation No Information Assessments Type Assessment Date assessment Right testicular pain 6 Patient Care Teams Name Effective Dates (start - stop) Status Members No Information
--- OUTSIDE RECORDS SUMMARY | 2025-01-02 07:39 | XMS_ITS | Clinical Summary ---
Author Organization [facility] Address [facility] [place] [address] Care Team Providers Care Framing Machine Tender Name Role Phone Robert Mario MD Primary Care Provider [phone] Allergies Active Allergy Reactions Criticality Noted Date Comments Iodine Rash Low 05/30/2019 Medications No known medications Social History Tobacco Use Types Packs/Day Years Used Date Smoking Tobacco: Never Smokeless Tobacco: Never Alcohol Use Standard Drinks/Week Comments No 0 (1 standard drink = 0.6 oz pur e alcohol) AUDIT-C Answer Date Recorded Frequency of Alcohol Consumption Never 05/30/2019 Average Number of Drinks Not on file 019 Frequency of Binge Drinking Not on file 05/20 Sex and Gender Information Value Date Recorded Sex Assigned at Not on file Legal Sex Male 7:38 PM CDT Gender Identity Not on file Sexual Orientation Not on file Last Filed Vital Signs Vital Sign Reading Time Taken Comments Blood Pressure 178/88 07/21/2023 9:56 PM SHEARER 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 AND TRIMMER Pulse 51 07/21/2023 9:56 PM SHEARER SCREEN MEASURER AND TRIMMER Temperature 36.5 C (97.7 F) 07/21/2023 7:33 PM SHEARER SCREEN MEASURER AND TRIMMER Respiratory Rate 18 07/21/2023 7:33 PM SHEARER SCREEN MEASURER AND TRIMMER Oxygen Saturation 98% 07/21/2023 9:56 PM SHEARER SCREEN MEASURER AND TRIMMER Inhaled Oxygen Concentration - - Weight 91.9 kg (202 lb 9.6 oz) 07/21/2023 7:33 P M SHEARER SCREEN MEASURER AND TRIMMER Height 177.8 cm (5' 10) 07/21/2023 7:33 PM SHEARER SCREEN MEASURER AND TRIMMER Body Mass Index 29.07 07/21/2023 7:33 PM SHEARER SCREEN MEASURER AND TRIMMER Plan of Treatment Health Maintenance Due Date Last Done Comments Colorectal Cancer Screening Colonoscopy (10 Years) 1955 Hepatitis C 12/05/1973 Pneumococcal Vaccine: 50+ Ye ars (1 of 1 - PCV) 12/05/2005 Zoster Vaccines (1 of 2) 12/05/2005 Annual Medicare Wellness Visit 12/05/2020 COVID-19 Vaccine (2 - 2023-2 5 season) 2024 09/27/2020 DTaP, Tdap and Td Vaccines ( 2 - Td or Tdap) 02/17/2030 02/18/2020 RSV Immunization or 60+ Years (1 - 1-dose 75+ series) 12/05/2030 Meningococcal B Vaccine Aged Out No l onger eligible based on patient's age to complete this topic Meningococcal Vaccine Aged Out No navi bianca eligible based on patient's age to complete this topic RSV Immunizations Under 20 Months Aged Out No longer eligible based on patient's age to complete this topic Insurance Care Teams Framing Machine Tender Relationship Specialty Start Date End Date Robert Mario MD [address] [place] [address] PCP - General INTERNAL MEDICINE 05/30/19
--- OUTSIDE RECORDS SUMMARY | 2025-01-02 07:39 | XMS_ITS | Clinical Summary ---
Author Organization [facility] Address [address] [place] [address] Care Team Providers Care Corporate Compliance Manager Name Role Phone Robert Mario MD Primary Care Provider [phone] Allergies Active Allergy Reactions Criticality Noted Date Comments Cat Dander Eye irritation Low 01/10/2019 Iodinated Contrast Media Anaphylaxis,Cough,Flus helen (skin) High 05/18/2017 Iodine Anaphylaxis High 03/14/2015 Poison Latasha Extract Other (See comments) Low 019 Spreads quickly Atifajr-Yha-Rom Reductase Inhibitors Muscle pain Medium 03/28/2018 Intolerant to multiple statins including Rosuvastatin. Tizanidine Mental status changes Low 03/28/2018 Foggy brain Medications diazePAM (VALIUM) 10 mg tablet Take 10 mg by mouth 2 (two) times a day. 7 Active aspirin 81 mg tablet Take 1 tablet (81 mg total) by mouth daily Active nitroglycerin (NITROSTAT) 0.[address] 1 tablet (0.4 mg total) under the tongue every 5 (five) minutes as needed for chest pain. Maximum of 3 tablets. 25 tablet 11 8 Active multivit-min/FA/ lycopen/lutein (CENTRUM SILVER MEN ORAL) Take by mouth Active gabapentin (NEURONTIN) 100 mg capsule Take 1 capsule (100 mg total) by mouth 3 (three) times a day as needed (as needed for pain) 30 capsule 9 Active Additional Information Patient taking differently: 300 mgoralDaily, Reported on 04/20/2023 metoprolol XL (TOPROL-XL) 25 mg 24 hr tablet TAKE 1 TABLET (25 MG TOTAL) BY MOUTH DAILY. 90 tablet 2 0 Active famotidine (PEPCID) 40 mg tablet 0 Active naproxen (NAPROSYN) 500 mg tablet 0 Active lisinopriL (PRINIVIL,ZESTRI L) 20 mg tabletIndication s:Essential hypertension Take 1 tablet (20 mg total) by mouth daily 90 tablet 3 0 Active sildenafiL (VIAGRA) 100 mg tablet 1 Active cyanocobalamin (Vitamin B-12) 1,000 mcg tabletIndication s:Prevention of Vitamin B12 Deficiency Take 1,000 mcg by mouth daily Active citalopram (CeleXA) 20 mg tablet Take 1 tablet (20 mg total) by mouth daily 3 Active evolocumab (Repatha SureClick) 140 mg/mL pen injector Inject 1 mL (140 mg total) under the skin every 14 (fourteen) days 2 mL 11 3 Active Active Problems Problem Noted Date Diagnosed Date Statin myopathy 09/15/2020 Right leg pain 12/04/2019 Assessment & Plan (12/04/2019 2:54 PM CDT): Patient has scarring around vein harvest site. X-rays show hemoclips which would have been used to ligate potentially the vein itself and associated tributaries. Residual discomfort could be related to saphenous nerve irritation. Do not recommend any further surgical intervention. Surgical excision of this area would likely lead to additional discomfort and scarring. 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 No evidence of infection or retained foreign body with the exception of hemoclips. Do not recommend surgical excision Chronic coronary artery disease 11/03/2016 Anxiety 04/25/2014 Spermatocele 04/21/2011 Malignant neoplasm of prostate 11/21/2009 Immunizations Immunization Administration Dates Next Due Influenza, Trivalent, IM (MDV) 03/29/2014 Surgical History Surgery Date Site/Laterality Comments CORONARY ARTERY BYPASS GRAFT HERNIA REPAIR Medical History Medical History Date Comments Coronary artery disease Cancer (HCC) GERD (gastroesophageal reflux disease) Family History Medical History Relation Name Comments Prostate cancer Brother 1 Prostate cancer Brother 2 Prostate cancer Father Heart disease Mother Diabetes Sister 1 Relation Name Status Comments Brother 1 Alive Brother 2 Alive Father Mother Sister 1 Alive Sister 2 Alive Social History Tobacco Use Types Packs/Day Years Used Date Smoking Tobacco: Former Cigarettes Q uit: 03/28/2012 Smokeless Tobacco: Never Alcohol Use Standard Drinks/Week Comments Yes 0 (1 standard drink = 0.6 oz pur e alcohol) rarely Personal Safety Answer Date Recorded Getting School Help Needed Not on file 06/23 Sex and Gender Information Value Date Recorded Sex Assigned at Not on file Legal Sex Male 2:57 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 Gender Identity Not on file Sexual Orientation Not on file Obstetrics History Last Filed Vital Signs Vital Sign Reading Time Taken Comments Blood Pressure 130/82 04/20/2023 11:27 AM CDT Pulse 55 04/20/2023 11:27 AM CDT Temperature 36.3 C (97.3 F) 11/28/2019 8:48 AM CDT Respiratory Rate - - Oxygen Saturation 95% 04/20/2023 11:27 AM CDT Inhaled Oxygen Concentration - - Weight 90.4 kg (199 lb 3.2 oz) 04/20/2023 11:27 AM CDT Height 177.8 cm (5' 10) 04/20/2023 11:27 AM CDT Body Mass Index 28.58 04/20/2023 11:27 AM CDT Plan of Treatment Health Maintenance Due Date Last Done Comments Colon Cancer Screening-Colonoscopy 1955 Depression Screening 1955 Fall Risk Assessment 1955 Prostate Cancer Screening-PSA 1955 DTaP/Tdap/Td Vaccine (1 - Tdap) 12/05/1966 Hepatitis B Screening 12/05/1973 Pneumococcal vaccine 65+ (1 of 2 - PCV) 12/05/1974 Zoster Vaccine (1 of 2) 12/05/2005 Well Visit 65+ 12/05/2020 Influenza Vaccine (Season Ended) 2025 03/29/20 14 Hepatitis C Screening Completed 10/28/2016, 017 Abdominal Aortic Aneurysm (AAA) Screen Completed Procedures Procedure Name Priority Date/Time Associated Diagnosis Comments HEPATITIS C ANTIBODY STAT 10/28/2016 1:56 PM CDT from Last 3 Months or Most Recently Relevant to Health Maintenance Results * Hepatitis C antibody (10/28/2016 1:56 PM CDT) Hep C Ab Nonreactive Nonreactive DON[facility] MARION Comment: Interpretive Data Positive results should be confirmed by a molecular method. If positive, a second separately collected sample should be submitted for Hepatitis C Virus (HCV) RNA Detection and Quantitation by Real-Time Reverse Tire Tester-PCR (RT-PCR). Current interpretive data was last revised on 2016. Blood specimen (specimen) 10/28/2016 1:56 PM CDT 10/28/2016 2:18 PM CDT us Notinfile Unknown LAB MICROBIOLOGY - GENERAL ORD ERABLES Edited Result - Final [facility]ION [facility] [place] [address] from Last 3 Months or Most Recently Relevant to Health Maintenance Insurance [facility] MEDICARE ADVANTAGE [facility] MEDICARE ADVANTAGE [facility] MEDICARE ADVANTAGE Care Teams Corporate Compliance Manager Relationship Specialty Start Date End Date Robert Mario MD [address] [address] PCP - General 10/20/16
--- OUTSIDE RECORDS SUMMARY | 2025-01-02 07:39 | XMS_ITS | Continuity of Care Document ---
Author Organization [facility] Address [address] [place] [address] [address] [place] [address] Phone Care Team Providers Care Gastroenterologist Name Role Phone Chely Muro Unavailable Unavailable Procedures Procedure Date Removal Of Skin Lesion Advance Directives Directive Yes / No Effective Date File Name No Information Encounters Encounter Description Practice Location Reason(s) For Visit Diagnoses Date Provider Providers Copied on [facility]counter [facility] [address] [place] [address] [address], [place], [place], [id number], [place] tel:[phone] [facility]3] No Information [address], [place], [address], [place]. tel:[phone] Family History Family Member Type Diagnosis Age At Onset No Information Payers Payer name Insurance type Covered republican ID Authoriza tirito(s) [employer] SOI [id number] Social History Type Description Quantity Date Captured Comments Sex Male Smoking Status No Information Chief Complaint And Reason For Visit No Information Reason For Referral Reason For Referral No Information History Of Present Illness Encounter Date Complaint History Of Prese nt Illness No Information Functional Status Date Functional Assessmen t No Information Instructions Date Instruction Additional Infor mation No Information Assessments Type Assessment Date No Information Patient Care Teams Name Effective Dates (start - stop) Status Members No Information
--- OUTSIDE RECORDS SUMMARY | 2025-01-02 07:39 | XMS_ITS | Encounter Summary ---
Author Organization [facility] Address [address] [place] [address] Care Team Providers Care Copra Sampler Name Role Phone Unavailable Primary Care Provider Unavailabl e Encounter Details Date Type Department Care Team (Late st Contact Info) Description 02/28/2023 Lab Requisition [facility] - DermPath Lab [address] [place] [phone] Yousuf Krishnan MD 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 DermPath Lab Received: 02/28/2023 09:08 AM Pathologist: Reyna Washington MD Specimen: Skin, left lat scalp 3 3:09 PM CDT DERMATOPATHOLOGY LABORATORY Final Diagnosis Specimen A. SKIN, left lat scalp: MATURE ADIPOSE TISSUE CONSISTENT WITH LIPOMA (D17.0) PRESENT AT MARGIN 3 3:09 PM CDT DERMATOPATHOLOGY LABORATORY at 1509 CDT Clinical History Lipoma. Check margins. Path#[id number] 3 3:09 PM CDT DERMATOPATHOLOGY LABORATORY Gross Description Specimen A: Received is one formalin filled container labeled with the patient's name and designated left lat scalp. The specimen consists of a [id number] mm piece of skin. The specimen is serially sectioned and a patient relations representative section is submitted in cassette 1. Jar 1. 3 3:09 PM CDT DERMATOPATHOLOGY LABORATORY Microscopic Description Specimen A. SKIN, left lat scalp: There are typical adipocytes with minimal fibrous trabeculae. This lesion is present at the margin of the specimen. 3 3:09 PM CDT DERMATOPATHOLOGY LABORATORY Disclaimer An external and internal positive and negative controls are appropriate for the histochemical, immunohistochemical and immunofluorescence stain(s) in this case (if any), except where stated explicitly. The performance characteristics of the stain(s) cited in this report were developed and its performance characteristic determined by the Dermatopathology Laboratory at [facility], directed by Dr. Torsten Moreira. These tests need not be, and therefore are not, approved by the [place] Food and Drug Administration. The tests are used for clinical purposes. Billing Codes Specimen Charges Stain Charges 00931 1 3 3:09 PM CDT DERMATOPATHOLOGY LABORATORY Embedded Images 3 3:09 PM CDT DERMATOPATHOLOGY LABORATORY Pathology/Cytolog y TISSUE SPECIMEN FROM SKIN / Unknown 02/25/2023 02/28/2023 9:08 AM CDT Yousuf Krishnan MD LAB - PATHOLOGY/CYTOLOGY ORDER ONEL Final Result DERMATOPATHOLOGY LABORATORY [facility] - Department of Dermatology [address] [phone] documented in this encounter Visit Diagnoses Not on filedocumented in this encounter
--- OUTSIDE RECORDS SUMMARY | 2025-01-02 07:39 | XMS_ITS | Encounter Summary ---
Author Organization [facility] Address [address] [place] [address] Care Team Providers Care Financial Sales Advisor Name Role Phone Unavailable Primary Care Provider Unavailabl e Encounter Details Date Type Department Care Team (Late st Contact Info) Description 03/29/2023 Lab Requisition [facility] - DermPath Lab [address] [place] [id number] Yousuf Krishnan MD [address] [place] [address] Social History Tobacco Use Types Packs/Day Years Used Date Smoking Tobacco: Never Assessed Sex and Gender Information Value Date Recorded Sex Assigned at Not on file 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 Gender Identity Not on file Sexual Orientation Not on file documented as of this encounter Plan of Treatment Not on file documented as of this encounter Procedures Procedure Name Priority Date/Time Associated Diagnosis Comments DERMATOPATHOLOGY Routine 03/28/2023 12:0 0 AM CDT documented in this encounter Results * DERMATOPATHOLOGY (03/28/2023 12:00 AM CDT) Case Report Dermatopathology Report Case: [id number] Authorizing Provider: Yousuf Krishnan MD Collected: 03/28/2023 12:00 AM Ordering Location: [facility] DermPath Lab Received: 03/29/2023 07:32 AM Pathologist: Loly Moreira MD Specimen: Skin, right lower eyelid 3 5:00 PM CDT DERMATOPATHOLOGY LABORATORY Final Diagnosis Specimen A. SKIN, right lower eyelid: SEBORRHEIC KERATOSIS, INFLAMED (L82.0) 3 5:00 PM CDT DERMATOPATHOLOGY LABORATORY at 1700 CDT Clinical History ISK vs other. Path# [id number] 3 5:00 PM CDT DERMATOPATHOLOGY LABORATORY Gross Description Specimen A: Received is one formalin filled container labeled with the patient's name and designated right lower eyelid. The specimen consists of a(2) pieces shave biopsy measuring 3x3x1, 3x3x1 mm. Jar 0. 3 5:00 PM CDT DERMATOPATHOLOGY LABORATORY Microscopic Description Specimen A. SKIN, right lower eyelid: There is hyperkeratosis, parakeratosis, papillomatosis, and acanthosis of the epidermis. There is a lymphohistiocytic infiltrate within the papillary dermis that is focally lichenoid. 3 5:00 PM CDT DERMATOPATHOLOGY LABORATORY Disclaimer An external and internal positive and negative controls are appropriate for the histochemical, immunohistochemical and immunofluorescence stain(s) in this case (if any), except where stated explicitly. The performance characteristics of the stain(s) cited in this report were developed and its performance characteristic determined by the Dermatopathology Laboratory at [facility], directed by Dr. Torsten Moreira. These tests need not be, and therefore are not, approved by the [place] Food and Drug Administration. The tests are used for clinical purposes. Billing Codes Specimen Charges Stain Charges 17288 1 3 5:00 PM CDT DERMATOPATHOLOGY LABORATORY Embedded Images 3 5:00 PM CDT DERMATOPATHOLOGY LABORATORY Pathology/Cytolog y TISSUE SPECIMEN FROM SKIN / Unknown 03/28/2023 03/29/2023 7:32 AM CDT us Yousuf Krishnan MD LAB - PATHOLOGY/CYTOLOGY ORDER ONEL Final Result DERMATOPATHOLOGY LABORATORY [facility] - Department of Dermatology [address] [place] [address], [facility] [phone] documented in this encounter Visit Diagnoses Not on filedocumented in this encounter
--- OUTSIDE RECORDS SUMMARY | 2025-01-02 07:39 | XMS_ITS | Referral Summary ---
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 Name Role Phone Robert Mario MD Primary Care Provider [phone] Allergies Active Allergy Reactions Criticality Noted Date Comments Cat Dander Eye irritation Low 01/10/2019 Iodinated Contrast Media Anaphylaxis,Cough,Flus helen (skin) High 05/18/2017 Iodine Anaphylaxis High 03/14/2015 Poison Latasha Extract Other (See comments) Low 019 Spreads quickly Htponup-Fyu-Lin Reductase Inhibitors Muscle pain Medium 03/28/2018 Intolerant [...] intolerance 08/10/2017 Coronary artery disease invo lving [place] coronary artery of [place] heart without angina pectoris 05/18/2017 HTN (hypertension), benign 05/18/2017 Assessment & Plan (12/04/2019 2:54 PM CDT): Per patient blood pressure is controlled continue antihypertensive regimen per PCP Dyslipidemia 05/18/2017 S/P CABG x 4 05/18/2017 H/O non-ST elevation myocardial infarction (NSTE AL) 05/18/2017 Tobacco abuse, in remission 05/18/2017 Hyperlipidemia [...] Next Due Influenza, Trivalent, IM (MDV) 03/29/2014 Social History Tobacco Use Types Packs/Day Years [...] on file 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 If positive, a second separately collected sample should be submitted for Hepatitis C Virus (HCV) RNA Detection and Quantitation by Real-Time Reverse Submarine Diver-PCR (RT-PCR). Current interpretive data was last revised on 2016. Blood specimen (specimen) 10/28/2016 1:56 PM CDT 10/28/2016 2:18 PM CDT us Notinfile Unknown LAB MICROBIOLOGY - GENERAL ORD ERABLES Edited Result - Final [facility] Department [place] [address] from Last 3 Months or Most Recently Relevant to Health Maintenance Insurance [facility] [employer]VANTAGE Member Subscriber Plan / Payer (Ef fective 2023-Present) Name:Marcellus Liang Relation to Subscriber:Self Name:Marcellus Liang Payer ID:[id number] (NAIC) Type:[facility] MEDIC[employer] Address: [address] [address] [facility] MEDICARE ADVANTAGE [facility] MEDIC[employer] ADVANTAGE Care Teams Counter Roller Relationship Specialty Start Date End Date Robert Mario MD [address] [facility] [address] [place], [place] [id number] PCP - General 10/20/16
[2025-01-02 07:58] LABS: Hematocrit 46.5 % (42.0-52.0); Hemoglobin 15.2 g/dL (14.0-18.0); Immature Granulocyte Percent A 0.6 % (0-0.5); Lymphocytes Absolute Auto 1.41 K/mm3 (0.9-3.2); Mean Corpuscular HGB Conc 32.7 g/dl (32-36); Mean Corpuscular Hemoglobin 28.6 pg (26-34); Mean Corpuscular Volume 87.4 fl (80-100); Nucleated Red Blood Cells Absolute Auto 0.000 K/mm3 (0.0-0.012); Nucleated Red Blood Cells Perc 0.0 % (0.0-0.2); Platelet Count Result 208 k/mm3 (150-375); Red Blood Count 5.32 M/mm3 (4.6-6.20); White Blood Count 7.2 K/mm3 (4.5-10.0)
[2025-01-02 08:06] LABS: Hemoglobin A1C 5.9 % (<5.7)
[2025-01-02 08:24] LABS: Alanine Aminotransferase 17 U/L (6-50); Albumin Level 4.4 g/dL (3.5-5.1); Alkaline Phosphatase 60 U/L (38-126); Anion Gap 9 mmol/L (4-12); Aspartate Amino Transferase 25 U/L (17-59); Bilirubin,Total 0.4 mg/dL (0.2-1.3); Blood Urea Nitrogen 22 mg/dL (9-20); Calcium 9.3 mg/dL (8.4-10.2); Carbon Dioxide 23 mmol/L (22-30); Chloride 107 mmol/L (98-107); Cholesterol 268 mg/dL (0-200); Estimated Glomerular Filt Rate > 60; Glucose 111 mg/dL (65-110); HDL Direct 31 mg/dL; Potassium 4.2 mmol/L (3.4-5.0); Sodium 139 mmol/L (137-145); Total Protein 7.5 g/dL (6.3-8.2); Triglycerides 236 mg/dL (<150)
[2025-01-02 09:00] LABS: Prostate Specific Antigen < 0.1 ng/mL (< OR = 4.0)
== END 2025-01-02 07:38 | disposition home or self-care (01) ==
PROVIDERS: PCP Internal Medicine; Visit Provider Internal Medicine
DX: Z12.5 Encounter for screening for malignant neoplasm of prostate (principal); I10 Essential (primary) hypertension; E78.5 Hyperlipidemia, unspecified; R73.9 Hyperglycemia, unspecified; R53.83 Other fatigue
CPT/HCPCS: 36415; 80053; 80061; 83036; 84153; 85025; G0103